=== PATIENT | female | born 1965 | race African-American/Black ===

== ENCOUNTER 2018-04-11 15:48 | Emergency (ER) | payer OTHER ==
[~2018-04-11] VITALS: Ht 182.9 cm; Wt 131.1 kg
[2018-04-11 15:53] VITALS: BP 143/99
[2018-04-11] MEDS ORDERED: KETOROLAC 60 MG/2 ML VIAL IM ONE (16:45)
[2018-04-11 17:12] VITALS: BP 138/75
== END 2018-04-11 17:12 | disposition home or self-care (01) ==
LOC: MED 15:48
DX: M54.41 Lumbago with sciatica, right side (principal); J45.909 Unspecified asthma, uncomplicated
CPT/HCPCS: 96372; 99283; J1885